=== PATIENT | female | born 1935 | race Hispanic/Latino ===

== ENCOUNTER 2018-04-15 14:38 | Emergency (ER) | payer MEDICARE ==
[2018-04-15 14:53] VITALS: BMI 27.4
[2018-04-15 14:54] VITALS: BP 169/71
[2018-04-15] MEDS ORDERED: Lidocaine 5% Patch TD STA (15:09)
[2018-04-15 17:02] VITALS: PULSE 80; RESP 19; TEMP 99; O2SAT 98
--- NOTE | 2018-04-26 12:15 | ED PDOC ---
Arrival/HPI - General Chief Complaint: Lower Extremity Problem/Injury Time Seen by Provider: 04/15/18 14:40 - History of Present Illness Narrative History of Present Illness (Text): 04/26/18 12:16 82 yo female presents to the ED c/o right lower back/buttocks pain radiating down right leg x 2 weeks. She states it's consistent with previous symptoms of her sciatica. No numbness or weakness. She is able to walk. No trauma. No urinary symptoms. No fever. Past Medical History - Provider Review Nursing Documentation Reviewed: Yes - Infectious Disease Hx of Infectious Diseases: None - Reproductive Menopause: Yes - Cardiac Hx Cardiac Disorders: Yes Hx Pacemaker: Yes - Pulmonary Hx Respiratory Disorders: No - Neurological Hx Neurological Disorder: No - Hematological/Oncological Hx Blood Disorders: No - Psychiatric Hx Psychophysiologic Disorder: No Hx Substance Use: No - Anesthesia Hx Anesthesia: No Family/Social History - Physician Review Nursing Documentation Reviewed: Yes Family/Social History: No Known Family HX Smoking Status: Former Smoker Hx Alcohol Use: No Hx Substance Use: No Allergies/Home Meds Allergies/Adverse Reactions: Allergies No Known Allergies Allergy (Verified 04/15/18 15:04) Home Medications: Home Meds Medication Instructions Recorded Confirmed Apixaban [Eliquis] 5 mg PO BID 04/15/18 04/15/18 Aspirin [Ecotrin] 81 mg PO DAILY 04/15/18 04/15/18 Atorvastatin [Lipitor] 80 mg PO DAILY 04/15/18 04/15/18 Digoxin [Digitek] 125 mcg PO DAILY 04/15/18 04/15/18 Famotidine [Pepcid] 20 mg PO DAILY 04/15/18 04/15/18 Furosemide [Lasix] 20 mg PO QWK 04/15/18 04/15/18 Levothyroxine [Synthroid] 100 mcg PO DAILY 04/15/18 04/15/18 Lisinopril [Zestril] 20 mg PO DAILY 04/15/18 04/15/18 Metoprolol Tartrate [Lopressor] 100 mg PO BID 04/15/18 04/15/18 Sennosides [Senokot] 0 mg PO BID 04/15/18 04/15/18 amLODIPine [Norvasc] 2.5 mg PO DAILY 04/15/18 04/15/18 Review of Systems - Physician Review All systems were reviewed & negative as marked: Yes - Review of Systems Constitutional: Normal Eyes: Normal ENT: Normal Respiratory: Normal Cardiovascular: Normal Gastrointestinal: Normal Genitourinary Female: Normal Musculoskeletal: Other (right back/leg pain) Skin: Normal Neurological: Normal Endocrine: Normal Hemo/Lymphatic: Normal Psychiatric: Normal Physical Exam Vital Signs Reviewed: Yes Vital Signs Temp Pulse Resp BP Pulse Ox 04/15/18 17:01 99.0 F 80 19 98 04/15/18 14:53 99.2 F 74 17 169/71 H 99 Temperature: Afebrile Blood Pressure: Normal Pulse: Regular Respiratory Rate: Normal Appearance: Positive for: Well-Appearing, Non-Toxic, Comfortable Pain Distress: None Mental Status: Positive for: Alert and Oriented X 3 - Systems Exam Head: Present: Atraumatic, Normocephalic Pupils: Present: PERRL Extroacular Muscles: Present: EOMI Conjunctiva: Present: Normal Mouth: Present: Moist Mucous Membranes Neck: Present: Normal Range of Motion Respiratory/Chest: Present: Clear to Auscultation, Good Air Exchange. No: Respiratory Distress, Accessory Muscle Use Cardiovascular: Present: Regular Rate and Rhythm, Normal S1, S2. No: Murmurs Abdomen: No: Tenderness, Distention, Peritoneal Signs Back: Present: Normal Inspection, Other (tenderness to sciatic area on right). No: Midline Tenderness, Paraspinal Tenderness, Pain with Leg Raise Upper Extremity: Present: Normal Inspection. No: Cyanosis, Edema Lower Extremity: Present: Normal Inspection, NORMAL PULSES, Normal ROM, Neurovascularly Intact. No: Edema, CALF TENDERNESS, Cyanosis, Mir's Sign, Tenderness, Swelling, Erythema, Deformity Neurological: Present: GCS=15, CN II-XII Intact, Speech Normal, Motor Func Grossly Intact, Normal Sensory Function Skin: Present: Warm, Dry, Normal Color. No: Rashes Psychiatric: Present: Alert, Oriented x 3, Normal Insight, Normal Concentration Medical Decision Making ED Course and Treatment: 82 yo female presents with right lower back pain radiating down leg consistent with her sciatica -- no clinical suspicion for DVT -- treated with Lidoderm patch, valium and toradol -- patient felt better after medications and was able to walk at baseline. She is no longer having pain. Will discharge home with medications and follow up with her PMD. Advised on precautions of dizziness with meds and to make sure to return to the ED with any concerns. - Medication Orders Current Medication Orders: Discontinued Medications Diazepam (Valium) 5 mg PO ONCE ONE; Protocol Stop: 04/15/18 15:10 Last Admin: 04/15/18 15:22 Dose: 5 mg Ketorolac Tromethamine (Toradol) 30 mg IM STAT STA Stop: 04/15/18 15:10 Last Admin: 04/15/18 15:22 Dose: 30 mg MAR Pain Assessment Document 04/15/18 15:22 [email or web address] (Rec: 04/15/18 15:22 [email or web address] [id number]) Pain Reassessment Is this a pain reassessment? No Sleep Is patient sleeping during reassessment? No Presence of Pain Presence of Pain Yes Pain Scale Used Protocol: PSCALES Pain Scale Used Numeric Location Left, Right or Bilateral Left Upper or Lower Lower Pain Location Body Site Back Description Description Constant Intensity of Pain at present 10 Pain Behavior Facial Grimacing Aggravating Factors Changing Position Alleviating Factors/Management Medication Techniques Alleviating Factors Medication IM Administration Charges Document 04/15/18 15:22 [email or web address] (Rec: 04/15/18 15:22 [email or web address] [id number]) Injection Site MAR Injection Site Left Deltoid Charges for Administration # of IM Administrations 1 Lidocaine (Lidoderm) 1 ea TD STAT STA Stop: 04/15/18 15:10 Last Admin: 04/15/18 15:18 Dose: 1 ea MAR Transdermal Patch Site Document 04/15/18 15:18 [email or web address] (Rec: 04/15/18 15:22 [email or web address] [id number]) Transdermal Patch Site Transdermal Patch Site Left Lower Back Disposition/Present on Arrival - Present on Arrival Any Indicators Present on Arrival: No History of DVT/PE: No History of Uncontrolled Diabetes: No Urinary Catheter: No History of Decub. Ulcer: No History Surgical Site Infection Following: None - Disposition Have Diagnosis and Disposition been Completed?: Yes Diagnosis: Sciatica Disposition: HOME/ ROUTINE Disposition Time: 17:01 Condition: IMPROVED Discharge Instructions (ExitCare): Sciatica Additional Instructions: BENITO SRINIVASAN, thank you for letting us take care of you today. Your provider was Georgi Lawler DO and you were treated for Sciatica. The emergency medical care you received today was directed at your acute symptoms. If you were prescribed any medication, please fill it and take as directed. It may take several days for your symptoms to resolve. Return to the Emergency Department if your symptoms worsen, do not improve, or if you have any other problems. Please contact your doctor or call one of the physicians/clinics you have been referred to that are listed on the Patient Visit Information form that is included in your discharge packet. Bring any paperwork you were given at discharge with you along with any medications you are taking to your follow up visit. Our treatment cannot replace ongoing medical care by a primary care provider outside of the emergency department. Thank you for allowing the [facility] team to be part of your care today. If you had an X-Ray or CT scan: A Radiologist will review the ED reading if any change in treatment is needed we will contact you. If you had a blood, urine, or wound culture: It will take several days for the results, if any change in treatment is needed we will contact you. If you had an STI test: It will take 48 hours for the results. Please call after 1 week if you have not heard back. Prescriptions: diaZEpam [Valium] 5 mg PO Q8 #10 tab Ibuprofen [Motrin] 600 mg PO Q6 PRN #30 tab PRN Reason: Pain, Moderate (4-7) Lidocaine 5% [Lidoderm] 1 ea TD DAILY PRN #4 patch PRN Reason: Pain, Moderate (4-7) Referrals: Non [facility] Provider, [Non-Staff] - Follow up with primary Forms: Paga (Martiniquais)
== END 2018-04-15 17:02 | disposition home or self-care (01) ==
LOC: ED 14:38
DX: M54.30 Sciatica, unspecified side (principal)
CPT/HCPCS: 96372; 99282; J1885